=== PATIENT | female | born 1950 | race Hispanic/Latino ===

== ENCOUNTER 2024-05-25 14:59 | Observation (INO) | payer MEDICARE, OTHER ==
[~2024-05-25] VITALS: Ht 157.5 cm; Wt 68.0 kg
[2024-05-25 15:00] VITALS: TEMP 98.2
[2024-05-25] MEDS ORDERED: SODIUM CHLORIDE FLUSH 10 ML SYR IV PRN (15:15)
[2024-05-25 15:38] LABS: BASOPHILS # (AUTO) 0.1 (0.0-0.1); BASOPHILS % 0.9 % (0.0-1.0); EOSINOPHILS # (AUTO) 0.2 (0.0-0.4); HEMATOCRIT 42.7 % (34.2-44.1); HEMOGLOBIN 14.4 g/dL (12.0-16.0); LYMPHOCYTES # (AUTO) 2.8 (1.0-3.2); LYMPHOCYTES % 35.6 % (18.0-39.1); MEAN CORPUSCULAR HEMOGLOBIN 31.4 pg (28-32); MEAN CORPUSCULAR HGB CONC 33.7 g/dL (31-35); MEAN CORPUSCULAR VOLUME 93.2 fL (81-99); MONOCYTES # (AUTO) 0.6 (0.2-0.8); MONOCYTES % 7.9 % (4.4-11.3); NEUTROPHILS # (AUTO) 4.2 (2.1-6.9); NEUTROPHILS % 52.3 % (38.7-80.0); PLATELET COUNT 210 x10e3/uL (140-360); RED BLOOD COUNT 4.58 x10e6/uL (3.6-5.1); WHITE BLOOD COUNT 7.97 x10e3/uL (4.8-10.8)
[2024-05-25] MEDS: ASPIRIN 81 MG CHEW TAB PO ONE ×2 (15:45→20:10)
[2024-05-25 15:57] LABS: ALANINE AMINOTRANSFERASE 22 IU/L (0-55); ALBUMIN 4.2 g/dL (3.5-5.0); ALKALINE PHOSPHATASE 69 IU/L (40-150); ANION GAP 15.8 mmol/L (8-16); BILIRUBIN,TOTAL 0.4 mg/dL (0.2-1.2); BLOOD UREA NITROGEN 14 mg/dL (7-26); BUN/CREATININE RATIO 16 (6-25); CALCIUM 9.7 mg/dL (8.4-10.2); CARBON DIOXIDE 23 mmol/L (22-29); CHLORIDE 105 mmol/L (98-107); CREATININE, SERUM 0.87 mg/dL (0.57-1.11); EST GLOMERULAR FILTRATION RATE 71 ML/MIN (>=60); GLUCOSE 99 mg/dL (74-118); POTASSIUM 3.8 mmol/L (3.5-5.1); SODIUM 140 mmol/L (136-145); TOTAL PROTEIN 8.4 g/dL (6.5-8.1)
[2024-05-25 16:04] LABS: TROPONIN I < 0.001 ng/mL (0-0.300)
[2024-05-25 16:28] VITALS: PULSE 78; RESP 18
[2024-05-25] MEDS ORDERED: SODIUM CHLORIDE FLUSH 10 ML SYR INJ PRN (16:30)
[2024-05-25] MEDS ORDERED: Morphine 4mg INJECTION 4 MG/ML INJ IV PRN (16:30)
[2024-05-25] MEDS ORDERED: ONDANSETRON HCL INJ 2MG/ML 2ML 2 MG/ML VIAL IV PRN ×2 (16:30→16:45)
[2024-05-25] MEDS ORDERED: HYDROCODONE/APAP 5MG-325MG TAB PO PRN (16:45)
[2024-05-25] MEDS ORDERED: SIMETHICONE 80 MG CHEW PO PRN (16:45)
[2024-05-25] MEDS ORDERED: DEXTROSE 50% SYRINGE 50 ML IV PRN (16:45)
[2024-05-25] MEDS ORDERED: MELATONIN 5 MG TABLET PO PRN (16:45)
[2024-05-25] MEDS ORDERED: DIPHENHYDRAMINE HCL 25 MG CAP PO PRN (16:45)
[2024-05-25] MEDS ORDERED: DOCUSATE SODIUM 100 MG CAP PO PRN (16:45)
[2024-05-25] MEDS ORDERED: LIDOCAINE 4% PATCH TP PRN (16:45)
[2024-05-25] MEDS ORDERED: POTASSIUM CHLORIDE 20 MEQ TAB CR PO PRN (16:45)
[2024-05-25] MEDS ORDERED: HYDRALAZINE HCL 20 MG/ML VIAL IV PRN (16:45)
[2024-05-25] MEDS ORDERED: BENZONATATE 100 MG CAP PO PRN (16:45)
[2024-05-25] MEDS ORDERED: ALBUTEROL/IPRATROPIUM 3 ML NEB NEB PRN (16:45)
[2024-05-25 17:39] VITALS: BP 153/88; PULSE 71; RESP 19; TEMP 97.7; O2SAT 98
[2024-05-25 18:50] VITALS: PULSE 80; RESP 18; O2SAT 98
[2024-05-25 20:00] VITALS: BP 156/89; PULSE 76; RESP 17; TEMP 97.6; O2SAT 99
[2024-05-25] MEDS: NITROGLYCERIN 0.4 MG SUBL SL ONE (20:10)
[2024-05-25] MEDS: ACETAMINOPHEN 325 MG TAB PO PRN (20:54)
[2024-05-25 22:29] VITALS: BP 156/89; PULSE 76; RESP 17; TEMP 97.6; O2SAT 99
[2024-05-26] VITALS (9 sets, daily range): BP systolic 107–146; BP diastolic 65–90; PULSE 61–86; RESP 16–20; TEMP 97.3–98.6; O2SAT 97–100
[2024-05-26 00:57] LABS: CREATINE KINASE 76 IU/L (29-168)
[2024-05-26 01:04] LABS: TROPONIN I < 0.001 ng/mL (0-0.300)
[2024-05-26 05:29] LABS: BASOPHILS # (AUTO) 0.1 (0.0-0.1); BASOPHILS % 1.2 % (0.0-1.0); EOSINOPHILS # (AUTO) 0.3 (0.0-0.4); EOSINOPHILS % 4.4 % (0.0-6.0); HEMATOCRIT 40.5 % (34.2-44.1); HEMOGLOBIN 13.2 g/dL (12.0-16.0); LYMPHOCYTES # (AUTO) 2.5 (1.0-3.2); LYMPHOCYTES % 38.1 % (18.0-39.1); MEAN CORPUSCULAR HGB CONC 32.6 g/dL (31-35); MEAN CORPUSCULAR VOLUME 95.1 fL (81-99); MONOCYTES # (AUTO) 0.6 (0.2-0.8); MONOCYTES % 9.6 % (4.4-11.3); NEUTROPHILS # (AUTO) 3.1 (2.1-6.9); NEUTROPHILS % 46.4 % (38.7-80.0); PLATELET COUNT 203 x10e3/uL (140-360); RED BLOOD COUNT 4.26 x10e6/uL (3.6-5.1); RED CELL DISTRIBUTION WIDTH 13.9 % (11.7-14.4); WHITE BLOOD COUNT 6.57 x10e3/uL (4.8-10.8)
[2024-05-26 06:02] LABS: ALBUMIN 3.5 g/dL (3.5-5.0); ANION GAP 13.9 mmol/L (8-16); BILIRUBIN,TOTAL 0.5 mg/dL (0.2-1.2); CALCIUM 9.1 mg/dL (8.4-10.2); CREATININE, SERUM 0.79 mg/dL (0.57-1.11); POTASSIUM 3.9 mmol/L (3.5-5.1)
[2024-05-26 06:51] LABS: CHOL/HDL RATIO 2.9 (3.0-3.6); MAGNESIUM 1.9 MG/DL (1.3-2.1); PHOSPHORUS 4.3 MG/DL (2.3-4.7)
[2024-05-26 06:52] LABS: CREATINE KINASE 70 IU/L (29-168)
[2024-05-26 07:00] LABS: TROPONIN I < 0.001 ng/mL (0-0.300)
[2024-05-26 07:11] LABS: THYROID STIMULATING HORMONE 3.039 uIU/mL (0.350-4.940)
[2024-05-26] MEDS: PANTOPRAZOLE SOD 40 MG TABEC PO SCH (07:30)
[2024-05-26] MEDS: ASPIRIN 81 MG ENTERIC COATED PO SCH (09:00)
[2024-05-26] MEDS ORDERED: ONDANSETRON HCL 4 MG ORAL DISINTEGRATING TAB PO PRN (18:45)
[2024-05-26] MEDS: ATORVASTATIN 40 MG TAB PO SCH (21:05)
[2024-05-27 01:22] VITALS: BP 131/69; PULSE 79; RESP 16; TEMP 97.8; O2SAT 100
[2024-05-27 05:13] VITALS: BP 132/80; PULSE 75; RESP 16; TEMP 97.8; O2SAT 100
[2024-05-27 08:00] VITALS: BP 151/75; PULSE 73; RESP 21; TEMP 98.1; O2SAT 97
[2024-05-27] MEDS: METOPROLOL SUCCINATE 25 MG TAB XL PO SCH (08:25)
[2024-05-27 09:14] VITALS: BP 136/80; PULSE 73; RESP 21; TEMP 98.1; O2SAT 97
[2024-05-27 12:00] VITALS: BP 131/76; PULSE 67; RESP 18; TEMP 97.9; O2SAT 98
[2024-05-27 17:27] VITALS: BP 141/83; PULSE 66; RESP 19; TEMP 97.5; O2SAT 100
== END 2024-05-27 21:58 | disposition home or self-care (01) ==
LOC: ER 15:05 → ERHOLD 16:31 → MED/SURG2 17:19
PROVIDERS: ADMIT Internal Medicine; ATTEND Internal Medicine
DX: R07.89 Other chest pain (principal); R07.2 Precordial pain; I10 Essential (primary) hypertension; I25.10 Atherosclerotic heart disease of native coronary artery without angina pectoris; E78.5 Hyperlipidemia, unspecified; I70.0 Atherosclerosis of aorta; I35.1 Nonrheumatic aortic (valve) insufficiency
CPT/HCPCS: 36415; 71045; 71275; 80053 ×2; 80061; 82550; 83036; 83735; 83880; 84100; 84443; 84484 ×2; 85025 ×2; 93005 ×2; 93306; 94799 ×2; 97161; 99284; G0378 ×3; S0164 ×2